=== PATIENT | female | born 1960 | race Caucasian/White ===

== ENCOUNTER → 2016-10-20 | Outpatient (CLI) | payer MEDICAID | LOC: COL.RAD 11:13 | DX: Q25.46 Tortuous aortic arch (principal); R16.1 Splenomegaly, not elsewhere classified; K55.8 Other vascular disorders of intestine | CPT/HCPCS: A9585; C8902 ==

== ENCOUNTER 2018-03-30 08:31 | Day surgery (SDC) | payer MEDICAID ==
[~2018-03-30] VITALS: Ht 160 cm; Wt 83.3 kg
[2018-03-30 10:04] VITALS: BP 108/40; PULSE 55; TEMP 97.2
[2018-03-30] MEDS ORDERED: ASPIRIN 81M81 MG/TA2 PO (10:09)
[2018-03-30] MEDS ORDERED: NEURONTIN300 MG/CAP PO (10:09)
[2018-03-30] MEDS ORDERED: PROTONIX 40MG T40 MG PO (10:10)
[2018-03-30] MEDS ORDERED: PLAVIX 75MG TAB75 MG PO (10:11)
[2018-03-30] MEDS ORDERED: COREG12.5 MG PO (10:11)
[2018-03-30] MEDS ORDERED: COZAAR 25MG25 MG/TAB PO (10:12)
[2018-03-30] MEDS ORDERED: LIPITOR 40MG TA40 MG PO (10:12)
[2018-03-30] MEDS ORDERED: FLEXERIL 1010 MG/TAB PO (10:13)
[2018-03-30] MEDS ORDERED: NITROSTAT0.4 MG/TAB SL (10:13)
[2018-03-30] MEDS ORDERED: NOVOLOG FLEX100 U/ML SQ (10:14)
[2018-03-30] MEDS ORDERED: LANTUS SOLOS100 U/ML SQ (10:15)
[2018-03-30] MEDS ORDERED: 00186-0372-20 IH (10:15)
[2018-03-30] MEDS ORDERED: RT SPIRIVA18 MCG IH (10:16)
[2018-03-30] MEDS ORDERED: LEXAPRO20 MG PO (10:17)
[2018-03-30] MEDS ORDERED: AMBIEN 5MG TABLE5 MG PO (10:18)
[2018-03-30 10:53] VITALS: BP 94/53; PULSE 60; TEMP 97
[2018-03-30 11:00] VITALS: BP 88/42; PULSE 52
[2018-03-30 11:15] VITALS: BP 101/45; PULSE 52
[2018-03-30 11:30] VITALS: BP 109/57; PULSE 58
== END 2018-03-30 11:55 | disposition home or self-care (01) ==
LOC: SDCO 08:31
DX: K76.6 Portal hypertension (principal); K31.89 Other diseases of stomach and duodenum; K74.60 Unspecified cirrhosis of liver; I85.10 Secondary esophageal varices without bleeding; K21.9 Gastro-esophageal reflux disease without esophagitis; I25.10 Atherosclerotic heart disease of native coronary artery without angina pectoris; J44.9 Chronic obstructive pulmonary disease, unspecified; G47.33 Obstructive sleep apnea (adult) (pediatric); I10 Essential (primary) hypertension; E11.9 Type 2 diabetes mellitus without complications; E78.5 Hyperlipidemia, unspecified; M19.90 Unspecified osteoarthritis, unspecified site; I25.118 Atherosclerotic heart disease of native coronary artery with other forms of angina pectoris; F17.210 Nicotine dependence, cigarettes, uncomplicated; F32.9 Major depressive disorder, single episode, unspecified; F41.9 Anxiety disorder, unspecified; Z95.5 Presence of coronary angioplasty implant and graft; Z79.82 Long term (current) use of aspirin; Z79.02 Long term (current) use of antithrombotics/antiplatelets; Z79.4 Long term (current) use of insulin; Z88.0 Allergy status to penicillin; Z88.1 Allergy status to other antibiotic agents; Z88.6 Allergy status to analgesic agent; Z88.3 Allergy status to other anti-infective agents; Z88.5 Allergy status to narcotic agent; Z86.73 Personal history of transient ischemic attack (TIA), and cerebral infarction without residual deficits
CPT/HCPCS: J2704; J7030

== ENCOUNTER 2020-12-28 07:14 | Day surgery (SDC) | payer MEDICARE, OTHER ==
[2020-12-28] VITALS (14 sets, daily range): BP systolic 93–111; BP diastolic 43–100; PULSE 48–60; TEMP 97.6
[~2020-12-28] VITALS: Ht 160.1 cm; Wt 83.1 kg
[~2020-12-28 07:14] MED LIST: 00186-0372-20 IH; AMBIEN 5MG TABLE5 MG PO; ASPIRIN 81M81 MG/TA2 PO; COREG 6.256.25 MG/TA PO; COZAAR 25MG25 MG/TAB PO; FLEXERIL 1010 MG/TAB PO; LANTUS SOLOS100 U/ML SQ; LEXAPRO20 MG PO; LIPITOR 40MG TA40 MG PO; NEURONTIN300 MG/CAP PO; NITROSTAT0.4 MG/TAB SL; NOVOLOG FLEX100 U/ML SQ; PLAVIX 75MG TAB75 MG PO; PROTONIX 40MG T40 MG PO; RT SPIRIVA18 MCG IH
[2020-12-28 08:08] LABS: HEMATOCRIT 41.1 % (37.0-47.0); HEMOGLOBIN 13.8 g/dl (12.5-16.0); MEAN CELL VOLUME 85 fl (80.0-100.0); MEAN CORPUSCULAR HEMOGLOBIN 29 pg (27.0-31.0); MEAN CORPUSCULAR HGB CONC 34 g/dl (33.0-37.0); MEAN PLATELET VOLUME 10.2 fl (7.4-10.4); PLATELET COUNT 75 K/mm3 (130-400); RED BLOOD COUNT 4.81 M/mm3 (4.10-5.30); REDCELL DISTRIBUTION WIDTH-CV 13.7 % (11.5-14.5)
[2020-12-28 08:17] LABS: CALCIUM 9.3 mg/dL (8.4-10.2); CREATININE, serum 0.5 (0.52-1.25)
[2020-12-28 08:21] LABS: INR 1.3 (0.8-3.0); PROTHROMBIN TIME 14.8 SECONDS (9.7-12.8)
[2020-12-28 08:23] LABS: PARTIAL THROMBOPLASTIN TIME 34.7 SECONDS (26.0-37.0)
[2020-12-28] MEDS ORDERED: LYRICA200 MG PO (09:12)
[2020-12-28] MEDS ORDERED: FLEXERIL 1010 MG/TAB PO (09:14)
[2020-12-28] MEDS ORDERED: LIPITOR 40MG TA40 MG PO (09:15)
[2020-12-28] MEDS ORDERED: NATURE'S BLEND500 M1 PO (09:15)
[2020-12-28] MEDS ORDERED: LASIX 20MG TABL20 MG PO (09:20)
[2020-12-28] MEDS ORDERED: ANXIETY MED PO (09:21)
--- NOTE | 2020-12-28 09:24 | NUR ---
SEE MERGE DOCUMENTATION FOR MEDICATION ADMINISTRATION TIMES AND INTRA/POST PROCEDURE SEDATION ASSESSMENTS DURING HEART CATHETERIZATION. PT WITH KNOWN IODINE ALLERGY; PRETREATED WITH BENADRYL 50MG IV, PEPCID 20MG IV, AND SOLUMEDROL 125MG IV PRIOR TO PROCEDURE. PT ALSO RECIEVING ZOFRAN 4MG IV PRETREAT PER ADRIANA MENDEZ.
--- NOTE | 2020-12-28 14:27 | NUR ---
Discharge instructions given to pt.Pt verbalize understanding.INT removed,catheter tip intact.Pt escorted out via wheelchair by this nurse.
== END 2020-12-28 14:38 | disposition home or self-care (01) ==
LOC: COL.CAR 07:14
PROVIDERS: Internal Medicine Cardiovascular Disease
DX: R07.89 Other chest pain (principal); I25.10 Atherosclerotic heart disease of native coronary artery without angina pectoris; E11.9 Type 2 diabetes mellitus without complications; I10 Essential (primary) hypertension; E78.5 Hyperlipidemia, unspecified; Z79.4 Long term (current) use of insulin; Z95.5 Presence of coronary angioplasty implant and graft; Z20.822 Contact with and (suspected) exposure to COVID-19; Z79.82 Long term (current) use of aspirin; Z79.02 Long term (current) use of antithrombotics/antiplatelets; Z79.899 Other long term (current) drug therapy
CPT/HCPCS: C1769; J1200; J1644; J2250; J2405; J2930; J3010; Q9967

== ENCOUNTER → 2022-05-26 | Day surgery (SDC) | payer MEDICARE, OTHER ==
[~2022-05-26] VITALS: Ht 157.5 cm; Wt 77.7 kg
[~2022-05-26] MED LIST changes: +ANXIETY MED PO; +LASIX 20MG TABL20 MG PO; +LYRICA200 MG PO; +NATURE'S BLEND500 M1 PO
[2022-05-26 08:09] LABS: BASO % 0.7 % (0.0-2.0); EOS % 1.3 % (0.0-4.0); GRAN # 2.2 K/mm3 (1.4-6.5); HEMATOCRIT 41.9 % (37.0-47.0); HEMOGLOBIN 14.3 g/dl (12.5-16.0); LYMPH # 0.6 K/mm3 (1.2-3.4); LYMPH % 18.3 % (20.0-51.0); MEAN CELL VOLUME 83 fl (80.0-100.0); MEAN CORPUSCULAR HEMOGLOBIN 28 pg (27-31); MEAN CORPUSCULAR HGB CONC 34 g/dl (33.0-37.0); MEAN PLATELET VOLUME 9.9 fl (7.4-10.4); MONO # 0.2 K/mm3 (0.1-0.6); MONO % 6.7 % (1.7-9.3); PLATELET COUNT 57 K/mm3 (130-400); RED BLOOD COUNT 5.05 M/mm3 (4.10-5.30)
[2022-05-26 08:28] VITALS: BP 136/46; PULSE 69; TEMP 98
[2022-05-26 09:30] VITALS: BP 118/47; PULSE 73; TEMP 97.9
--- NOTE | 2022-05-26 09:43 | NUR ---
0732 PT ADMITTED TO [facility]. PT AMBULATED TO [facility]. PT IS AXOX4. PT'S VSS. PT ORIENTED TO ROOM AND CALL LIGHT. CONSENT SIGNED. IV STARTED, LABS SEND, IVF HUNG. 0930 PT BACK FROM PACU. PT IS AXOX4. PT'S VSS. PT GIVEN FLUIDS AND SNACK.
--- NOTE | 2022-05-26 09:43 | NUR ---
0732 PT ADMITTED TO [facility]. PT AMBULATED TO [facility]. PT IS AXOX4. PT'S VSS. PT ORIENTED TO ROOM AND CALL LIGHT. CONSENT SIGNED. IV STARTED, LABS SEND, IVF HUNG. 0930 PT BACK FROM PACU. PT IS AXOX4. PT'S VSS. PT GIVEN FLUIDS AND SNACK.
[2022-05-26 09:45] VITALS: BP 127/40; PULSE 68; TEMP 98
[2022-05-26 10:00] VITALS: BP 112/49; PULSE 79; TEMP 98.3
--- NOTE | 2022-05-26 10:20 | NUR ---
PT DRESSED AND USED THE RESTROOM. DISCHARGE INSTUCTIONS DISCUSSED WITH PT. ALL QUESTIONS ANSWERED. IV DC'D. PT WHEELED OUT TO PATIENT ENTERANCE AND MET BY EVETTE.
--- NOTE | 2022-05-26 10:20 | NUR ---
PT DRESSED AND USED THE RESTROOM. DISCHARGE INSTUCTIONS DISCUSSED WITH PT. ALL QUESTIONS ANSWERED. IV DC'D. PT WHEELED OUT TO PATIENT ENTERANCE AND MET BY EVETTE.
[2022-05-26 11:36] VITALS: BP 118/47; PULSE 74
== END ==
LOC: SDCO 05-12 09:00
PROVIDERS: Pathology Anatomic Pathology & Clinical Pathology
DX: D69.6 Thrombocytopenia, unspecified (principal); R16.1 Splenomegaly, not elsewhere classified; D72.819 Decreased white blood cell count, unspecified; F17.210 Nicotine dependence, cigarettes, uncomplicated
CPT/HCPCS: J2405; J2704; J3010; J7120